=== PATIENT | female | born 1975 | race Caucasian/White ===

== ENCOUNTER → 2017-05-25 | Outpatient (CLI) | payer SELFPAY ==
[~2017-05-25] MED LIST: GRALISE300 MG PO; MULTI-DAY VITA1 EACH PO; PRILOSEC PO; PROGESTERONE200 MG PO; TENORMIN25 M1 PO
== END | disposition home or self-care (01) ==
LOC: CBAR 08:06
DX: Z01.812 Encounter for preprocedural laboratory examination (principal)
CPT/HCPCS: 36415; 86677

== ENCOUNTER → 2017-05-29 | Day surgery (SDC) | payer SELFPAY ==
--- NOTE | ~2017-05-29 | OR ---
Unit #: [id number] #: [id number] Patient: JERRI WALL [id number] [address] [address] [id number] MR#: [id number] NAME: JERRI WALL ROOM: Date of Procedure: 05/29/2017 Admission Date: 05/29/2017 Surgeon: Jesus Witt M.D. : 1975 Attending Physician: Jesus Witt M.D. OPERATIVE REPORT PREOPERATIVE DIAGNOSIS Chronic obesity. POSTOPERATIVE DIAGNOSES 1. Chronic obesity. 2. Less than 2 cm hiatal hernia. PROCEDURES PERFORMED Esophagogastroduodenoscopy with intragastric balloon placement. ANESTHESIA General anesthesia without intubation. Balloon volume of 640 mL. The balloon serial #[id number]. COMPLICATIONS None. INDICATIONS FOR PROCEDURE The patient is a 41-year-old with obesity. She is interested in the intragastric balloon. She has attended our workshop, reviewed our seminar and has been well informed. She presents for placement. DESCRIPTION OF PROCEDURE The patient was taken to the operating theater and placed in left lateral decubitus position. IV anesthesia was induced. EGD scope was passed under direct vision into the esophagus. Esophagus was grossly normal. There was a small less than 2 cm hiatal hernia. No inflammation. Stomach and duodenum were normal. I then placed the intragastric balloon into the retropharynx and into the esophagus. Under direct vision, I placed this into the gastric fundus and its placement confirmed with its relevance in location with the GE junction. I then removed the guidewire and then insufflated with saline to 640 mL. The tubing was then disconnected and removed. Subsequent EGD past the balloon placement, retroflexed the scope confirmed placement. She tolerated the procedure well and sent to recovery room in good condition. Dictated by... Jesus Witt M.D. JNO/modl Unit #: [id number] #: [id number] Patient: JERRI WALL TD: 05/29/2017 19:02 JOB #: [id number] OPERATIVE REPORT Page 1 of 1 X Jesus Witt MD PROCEDURE OPERATIVE NOTE
== END | disposition home or self-care (01) ==
LOC: COPS 08:10
PROVIDERS: Surgery
PROC: 0DJ08ZZ Inspection of Upper Intestinal Tract, Via Natural or Artificial Opening Endoscopic (ICD-10-PCS; principal; 2017-05-29 10:00)
DX: E66.9 Obesity, unspecified (principal); K44.9 Diaphragmatic hernia without obstruction or gangrene; J30.2 Other seasonal allergic rhinitis; G43.909 Migraine, unspecified, not intractable, without status migrainosus; Z79.899 Other long term (current) drug therapy; Z98.890 Other specified postprocedural states
CPT/HCPCS: 84703; J2250